=== PATIENT | female | born 1965 | race Caucasian/White ===

== ENCOUNTER 2019-06-01 09:27 | Observation (INO) | payer OTHER ==
[2019-06-01] MEDS: SOD CHLORIDE 0.9% 1,000 ML IV (10:30)
[2019-06-01] MEDS: CEFAZOLIN 2 GM/50 ML (PMX) 50 ML IVPB (10:30)
[2019-06-01] MEDS ORDERED: POLYMYXIN/BACITRACIN 1L IRRIG (12:22)
[2019-06-01] MEDS ORDERED: SUCCINYLCHOLINE CHLORIDE 100 MG/5 ML SYG IV (12:55)
[2019-06-01] MEDS ORDERED: ROCURONIUM 50 MG INJ ×2 (12:55→14:13)
[2019-06-01] MEDS ORDERED: PROPOFOL 20 ML (12:55)
[2019-06-01] MEDS ORDERED: MIDAZOLAM 1 MG/ML 2 ML INJ (12:55)
[2019-06-01] MEDS ORDERED: LIDOCAINE 2% (SDV) 5 ML INJ (12:55)
[2019-06-01] MEDS: BUPIVACAINE 0.5%/EPI (SDV) 30 ML INJ (13:17)
[2019-06-01] MEDS ORDERED: DEXAMETHASONE 4 MG/ML 5 ML INJ (13:20)
[2019-06-01] MEDS ORDERED: CEFAZOLIN 1 GM INJ (13:20)
[2019-06-01] MEDS ORDERED: ONDANSETRON 4 MG INJ (13:20)
[2019-06-01] MEDS ORDERED: FAMOTIDINE 20 MG INJ (13:20)
[2019-06-01] MEDS ORDERED: FENTAnyl 50 MCG/ML VIAL (13:23)
[2019-06-01] MEDS ORDERED: HYDROmorphONE 2 MG/ML SYG (14:11)
[2019-06-01] MEDS ORDERED: SUGAMMADEX SODIUM 200 MG/2 ML VIAL IV ×2 (14:45→14:57)
[2019-06-01] MEDS ORDERED: ROPIVACAINE 0.5 % 30 ML VIAL (14:47)
[2019-06-01] MEDS ORDERED: OXYCODONE/ACETAMINOPHEN (5/325) TAB PO (15:00)
[2019-06-01] MEDS ORDERED: ACETAMINOPHEN 325 MG TAB PO (15:00)
[2019-06-01] MEDS ORDERED: FENTAnyl 50 MCG/ML VIAL IV (15:30)
[2019-06-01] MEDS ORDERED: DIPHENHYDRAMINE 50 MG INJ IV (15:30)
[2019-06-01] MEDS ORDERED: ALBUTEROL 0.083% (NEB) 2.5 MG/3 ML AMP HHN (15:30)
[2019-06-01] MEDS ORDERED: ONDANSETRON 4 MG INJ IV (15:30)
[2019-06-01] MEDS ORDERED: IPRATROPIUM (NEB) 0.5 MG/2.5 ML AMP HHN (15:30)
[2019-06-01] MEDS ORDERED: MEPERIDINE 25 MG INJ IV (15:30)
[2019-06-01] MEDS ORDERED: HYDROmorphONE 1 MG/5 ML IV SYRINGE IV ×3 (15:30)
[2019-06-01] MEDS: ONDANSETRON 4 MG INJ IV ×2 (16:00→22:38)
[2019-06-01] MEDS: PROCHLORPERAZINE 10 MG INJ IV (16:26)
[2019-06-01] MEDS: DEXTROSE 5%-0.45% NACL 1,000 ML IV (18:40)
[2019-06-01] MEDS: morphine 2 MG INJ IV (19:14)
[2019-06-01] MEDS: FAMOTIDINE 20 MG TAB PO (21:03)
[2019-06-02] MEDS: PROCHLORPERAZINE 10 MG INJ IV (02:15)
[2019-06-02] MEDS: KETOROLAC 30 MG INJ IV (02:33)
[2019-06-02] MEDS: DEXTROSE 5%-0.45% NACL 1,000 ML IV ×2 (04:21→11:00)
[2019-06-02 05:13] LABS: WHITE BLOOD COUNT 14.4 10^3/ul (4.8-10.8)
[2019-06-02 05:13] LABS: ABNORMAL IP MESSAGE 1; BASOPHIL # 0.1 10^3/ul (0.0-0.1); BASOPHILS % 0.8 % (0.0-2.0); EOSINOPHILS # 0.1 10^3/ul (0.0-0.5); EOSINOPHILS % 0.4 % (0.0-7.0); HEMATOCRIT 38.4 % (37.0-47.0); HEMOGLOBIN 12.4 g/dl (12.0-16.0); LYMPHOCYTES % 6.9 % (15.0-51.0); MEAN CORPUSCULAR HEMOGLOBIN 31.4 pg (29.0-33.0); MEAN CORPUSCULAR HGB CONC 32.3 g/dl (32.0-37.0); MEAN CORPUSCULAR VOLUME 97.2 fl (82.0-101.0); MEAN PLATELET VOLUME 9.8 fl (7.4-10.4); MONOCYTE # 1.6 10^3/ul (0.3-0.9); MONOCYTES % 10.8 % (0.0-11.0); NEUTROPHIL # 11.5 10^3/ul (1.6-7.5); NEUTROPHILS % 80.4 % (39.0-77.0); PLATELET COUNT 343 10^3/UL (140-415); RED BLOOD COUNT 3.95 10^6/ul (4.20-5.40); RED CELL DISTRIBUTION WIDTH 13.8 % (11.5-14.5)
[2019-06-02 05:14] LABS: ADD MAN DIFF? NO
[2019-06-02 05:19] LABS: POSITIVE DIFF @See below
[2019-06-02 05:29] LABS: ANION GAP 6 (5-13); BLOOD UREA NITROGEN 11 mg/dl (7-20); CALCIUM 8.5 mg/dl (8.4-10.2); CARBON DIOXIDE 29 mmol/L (21-31); CHLORIDE 101 mmol/L (97-110); CREATININE 0.58 mg/dl (0.44-1.00); Estimated GFR > 60 mL/min (>60); GLUCOSE 115 mg/dl (70-220); POTASSIUM 3.9 mmol/L (3.5-5.1); SODIUM 136 mmol/L (135-144)
[2019-06-02] MEDS: FAMOTIDINE 20 MG TAB PO (09:11)
[2019-06-02] MEDS: IBUPROFEN 600 MG TAB PO (13:06)
[2019-06-02] MEDS: OXYCODONE/ACETAMINOPHEN (5/325) TAB PO (15:27)
== END 2019-06-02 17:15 | disposition home or self-care (01) ==
LOC: SDS 09:27 → REC 15:01 → MS1 18:44
DX: K43.2 Incisional hernia without obstruction or gangrene (principal); K66.0 Peritoneal adhesions (postprocedural) (postinfection)
CPT/HCPCS: 49560; 80048; 85025; 88302; 99217